=== PATIENT | male | born 1940 ===

== ENCOUNTER 2020-08-08 18:16 | Emergency (ER) | payer BC ==
[2020-08-08] MEDS ORDERED: PANTOPRAZOLE SO40 MG PO (18:46)
[2020-08-08] MEDS ORDERED: ATORVASTATIN CA10 MG PO (18:47)
[2020-08-08] MEDS ORDERED: FINASTERIDE5 M1 PO (18:47)
[2020-08-08] MEDS ORDERED: CARDIZEM CD240 M1 PO (18:47)
[2020-08-08] MEDS ORDERED: FISH OIL1 IU PO (18:48)
[2020-08-08] MEDS ORDERED: FLOMAX0.4 MG PO (18:48)
[2020-08-08] MEDS ORDERED: POTASSIUM CHLO10 ME5 (18:48)
[2020-08-08] MEDS ORDERED: SORINE PO (18:48)
[2020-08-08] MEDS ORDERED: PHARMASSURE FO0.4 MG PO (18:48)
[2020-08-08] MEDS ORDERED: MEMANTINE HCL5 MG PO (18:48)
[2020-08-08] MEDS ORDERED: WARFARIN SODIUM4 MG PO (18:49)
[2020-08-08] MEDS ORDERED: VITAMIN B122500 MC1 PO (18:49)
[2020-08-08 19:32] LABS: BASO # 0.04 (0.02-0.10); EOS # 0.07 (0.04-0.40); HEMATOCRIT 35.8 % (42.0-52.0); HEMOGLOBIN 11.7 g/dL (13.5-18.0); LYMPH# 0.96 (1.50-4.00); MEAN CELL VOLUME 93 fl (78-100); MEAN CORPUSCULAR HEMOGLOBIN 30 pg (27-31); MEAN CORPUSCULAR HGB CONC 33 g/dL (33-37); MEAN PLATELET VOLUME 11.4 fl (7.4-10.4); NEU # 5.25 (1.40-6.50); PLATELET COUNT 174 K/mm3 (130-400); RED BLOOD COUNT 3.87 M/mm3 (4.20-5.60); RED CELL DISTRIBUTION WIDTH 13.6 % (11.5-14.5); WHITE BLOOD COUNT 6.9 K/mm3 (4.8-10.8)
[2020-08-08 19:41] LABS: ALBUMIN 3.7 g/dL (3.4-4.8); POTASSIUM 3.9 mmol/L (3.5-5.1); SODIUM 141 mmol/L (136-145)
[2020-08-08 19:43] LABS: CALCIUM 8.6 mg/dL (8.3-10.5)
[2020-08-08 19:44] LABS: GLUCOSE 107 mg/dL (75-110)
[2020-08-08 19:45] LABS: CARBON DIOXIDE 22 mmol/L (23-31)
[2020-08-08 19:48] LABS: ALCOHOL IN-HOUSE < 10 mg/dL (<10)
[2020-08-08 19:49] LABS: AST-SGOT 27 U/L (5-34)
[2020-08-08 19:50] LABS: ALT/SGPT 19 U/L (0-55)
[2020-08-08 19:52] LABS: PROTHROMBIN TIME 30.7 SECONDS (9.0-12.0)
[2020-08-08 20:22] LABS: TOTAL BILIRUBIN 1.3 mg/dL (0.2-1.2)
[2020-08-08 20:53] LABS: URINE APPEARANCE HAZY; URINE BILIRUBIN NEGATIVE (NEGATIVE); URINE BLOOD TRACE (NEGATIVE); URINE COLOR DK YELLOW; URINE GLUCOSE NEGATIVE (NEGATIVE); URINE KETONE NEGATIVE (NEGATIVE); URINE NITRATE NEGATIVE (NEGATIVE); URINE PROTEIN(semi-quant) TRACE mg/dL (NEGATIVE); URINE UROBILINOGEN NORMAL (NORMAL)
[2020-08-08 20:54] LABS: URINE LEUKOCYTE ESTERASE TRACE (NEGATIVE); URINE MUCUS PRESENT (NOT PRESENT)
[2020-08-09 12:47] VITALS: BP 130/79
== END 2020-08-09 12:20 | disposition home or self-care (01) ==
LOC: ED 18:16
PROVIDERS: Family Medicine
DX: F03.91 Unspecified dementia, unspecified severity, with behavioral disturbance (principal); R45.851 Suicidal ideations; K21.9 Gastro-esophageal reflux disease without esophagitis; N40.0 Benign prostatic hyperplasia without lower urinary tract symptoms; Z79.01 Long term (current) use of anticoagulants; Z20.822 Contact with and (suspected) exposure to COVID-19; Z95.2 Presence of prosthetic heart valve